=== PATIENT | male | born 1960 | race Two or more races ===

== ENCOUNTER 2016-08-29 04:26 | Emergency (ER) | payer OTHER ==
--- NOTE | 2016-08-29 07:19 | EDM.PDOC ---
ED HPI GENERAL MEDICAL PROBLEM - General Chief Complaint: General Stated Complaint: MENTAL HEALTH CRISIS Time Seen by Provider: 08/29/16 06:30 Source of Information: Reports: Patient History Limitations: Reports: No limitations - History of Present Illness INITIAL COMMENTS - FREE TEXT/NARRATIVE: Pt claims that he was trying to log online, as he does talk online with blogger with similar health issues. His nephews was in the room watching Television and making noise. He asked his Nephews to stop making noise, and went to sleep. Later he noted that there was real estate lawyer at home to take him to hospital for psych evaluation. According to real estate lawyer, he got a call from the neighbour claiming that patient was yelling and hence he was brought in to the hospital for eval. Pt presently is not having homicidal taught or suicidal ideation. He does not have weapon at home that he own, but he his parents own it and keep them locked. He has some bows in the attic in the garage, which he uses for deer hunting. Pt had his last Psych evaluation on 08/04/[address] Collier.On respiridone 4 mg for about 16 years.. Pt's sister is here, she claims that he was yelling out loud, but she says she would not say what he said. But later she said patient said loudly " if you all dont stop making noise I will kill all 3 of you" after which he slammed the door. Pt claims that the sister who is here, is from [place], he has only met her 3-4 times in the past 36 years. Now she is here with her 2 grown up kids, as his step father is dying. He does not feel around stranger in his , but he has never been upset and tries to stay calm. He does have good friends and acquaintance in the town. Pt and his sister is arguing here in the emergency room. - Related Data Allergies Allergy/AdvReac Type Severity Reaction Status Date / Time No Known Allergies Allergy Verified 08/29/16 07:30 Home Meds: Home Meds risperiDONE [Risperdal] 4 mg PO DAILY 08/29/16 [History] ED ROS GENERAL - Review of Systems Review Of Systems: See Below Constitutional: Denies: fever, chills, night sweats, diaphoresis HEENT: Denies: Rhinitis, Sinus problem, Throat pain Respiratory: Denies: Shortness of Breath, Cough, Sputum Cardiovascular: Denies: Chest pain, Edema, Lightheadedness Endocrine: Denies: fatigue GI/Abdominal: Denies: Abdominal pain, Constipation, Nausea, Vomiting : Denies: discharge, dysuria, flank pain Musculoskeletal: Denies: neck pain, shoulder pain, joint pain, joint swelling Skin: Denies: pruritis, rash Neurological: Denies: Confusion, Dizziness, Headache, Seizure, Difficulty Walking, Weakness Psychiatric: Denies: Agitation, Anxiety, Confusion ED EXAM, GENERAL - Physical Exam Exam: See Below Exam Limited By: No limitations General Appearance: alert, WD/WN, no apparent distress Eye Exam: bilateral eye: EOMI, normal inspection Ears: normal external exam, normal canal, hearing grossly normal, normal TMs Ear Exam: bilateral ear: auricle normal, canal normal, TM normal Nose: normal inspection, normal mucosa, no blood Throat/Mouth: Normal inspection, Normal lips, Normal teeth, Normal gums, Normal oropharynx, Normal voice, No airway compromise Head: atraumatic, normocephalic Neck: normal inspection, supple, non-tender, full range of motion Respiratory/Chest: no respiratory distress, lungs clear, normal breath sounds, no accessory muscle use, chest non-tender Cardiovascular: normal peripheral pulses, regular rate, rhythm, no edema, no gallop, no JVD, no murmur, no rub Peripheral Pulses: 2+: carotid (L), carotid (R), radial (L), radial (R) GI/Abdominal: normal bowel sounds, soft, non tender, no organomegaly, no distention, no abnormal bruit, no mass Psychiatric: normal affect, normal mood, depressed mood, flat affect, tearful Course - Vital Signs Text/Narrative:: Pt appears very calm in the emergency room. He does seem some insight into the situation. He has been taking his medications normally. He is upset, he feels like just because he is bipolar disorder, everyone thinks he is always wrong. I did hear the conversation between him and his sister, which does appear like very much blaming him for being loud and nosing, but patient remained calm althrough the argument. he did not threaten or talk of hurting anybody. Sister is very concerned that he might hurt her or her children. Hence at this point I did have counsellor online to have patient evaluated.He did have counselling done online With Ms. Vang from [employer]. did agree that he was not in any acute danger to himself or his surrounding or other person. But, she did recommend patient to have a early followup with Dr. Collier ( pt's psychiatrist). I did contact Dr. Collier and his recommendation was to increase his resperidal to 5mg from 4mg if he is acutely psychotic. And patient has an appointment set up with him for 10/05/16 at 1:30 pm. Pt was discharge home with his sister. Advised to return is there is any acute deterioration in his mental condition. Last Recorded V/S: Last Vital Signs Temp 98.6 F 08/29/16 07:25 Pulse 108 H 08/29/16 07:25 Resp 18 08/29/16 07:25 BP 185/84 H 08/29/16 07:25 Pulse Ox 98 08/29/16 07:25 Departure - Departure Time of Disposition: 09:00 Disposition: Home, Self-Care 01 Condition: fair Clinical Impression: Bipolar disorder Referrals: PCP,Unknown [Primary Care Provider] - Forms: ED Department Discharge Additional Instructions: Follow up with Dr. Olvera. Message was left with him and an appointment will be set up. Start taking Colace twice a day to soften stool. - Problem List & Annotations (1) Bipolar disorder SNOMED Code(s): 30046583 Code(s): F31.9 - BIPOLAR DISORDER, UNSPECIFIED Status: Acute - Problem List Review Problem List Initiated/Reviewed/Updated: Yes - Assessment/Plan Assessment:: Bipolar disorder Plan: Pt appears very calm in the emergency room. He does seem some insight into the situation. He has been taking his medications normally. He is upset, he feels like just because he is bipolar disorder, everyone thinks he is always wrong. I did hear the conversation between him and his sister, which does appear like very much blaming him for being loud and nosing, but patient remained calm althrough the argument. he did not threaten or talk of hurting anybody. Sister is very concerned that he might hurt her or her children. Hence at this point I did have counsellor online to have patient evaluated.He did have counselling done online With Ms. Vang from [employer]. did agree that he was not in any acute danger to himself or his surrounding or other person. But, she did recommend patient to have a early followup with Dr. Collier ( pt's psychiatrist). I did contact Dr. Collier and his recommendation was to increase his resperidal to 5mg from 4mg if he is acutely psychotic. And patient has an appointment set up with him for 10/05/16 at 1:30 pm. Pt was discharge home with his sister. Advised to return is there is any acute deterioration in his mental condition.
[2016-08-29 07:30] VITALS: BP 185/84
== END 2016-08-29 10:02 | disposition home or self-care (01) ==
LOC: LB.ED 04:26
DX: F31.9 Bipolar disorder, unspecified (principal); Z79.899 Other long term (current) drug therapy
CPT/HCPCS: 99283; 99284

== ENCOUNTER 2022-03-01 14:27 | Emergency (ER) | payer OTHER | END 2022-03-01 15:10 | disposition home or self-care (01) | LOC: LB.ED 14:27 | DX: K02.9 Dental caries, unspecified (principal); Z79.899 Other long term (current) drug therapy | CPT/HCPCS: 99282 ==